=== PATIENT | female | born 1980 | race Caucasian/White ===

== ENCOUNTER 2021-11-23 02:59 | Day surgery (SDC) | payer OTHER ==
[~2021-11-23 02:59] MED LIST: ALBU90OI61 INH; BAG BALM; CALC1.25T PO; CLOT10 SUSW; CLOT1TC TOP; DOCU100 PO; FLUT220OIA IH; HYDCHL12.5 PO; LEVSOD50 PO; MAPAP; MELO7.5 PO; OMEP20ER PO; PREVIDENT; SENN187 PO; [UNRECOGNIZED DRUG - OTHER]
== END 2021-11-23 23:36 | disposition home or self-care (01) ==
LOC: WOUND 02:59
DX: L97.212 Non-pressure chronic ulcer of right calf with fat layer exposed (principal); L97.819 Non-pressure chronic ulcer of other part of right lower leg with unspecified severity; I87.2 Venous insufficiency (chronic) (peripheral); I73.9 Peripheral vascular disease, unspecified; L03.115 Cellulitis of right lower limb; I10 Essential (primary) hypertension; R60.0 Localized edema; J45.909 Unspecified asthma, uncomplicated
CPT/HCPCS: A9270; G0463

== ENCOUNTER 2021-11-30 01:56 | Day surgery (SDC) | payer OTHER | END 2021-11-30 23:21 | disposition home or self-care (01) | LOC: WOUND 01:56 | DX: L97.212 Non-pressure chronic ulcer of right calf with fat layer exposed (principal); L03.115 Cellulitis of right lower limb; I87.2 Venous insufficiency (chronic) (peripheral); I73.9 Peripheral vascular disease, unspecified; I10 Essential (primary) hypertension; R60.0 Localized edema | CPT/HCPCS: G0463 ==

== ENCOUNTER 2021-12-07 08:00 | Day surgery (SDC) | payer OTHER | END 2021-12-07 23:59 | disposition home or self-care (01) | LOC: WOUND 08:00 | DX: L97.812 Non-pressure chronic ulcer of other part of right lower leg with fat layer exposed (principal); L03.115 Cellulitis of right lower limb; I87.2 Venous insufficiency (chronic) (peripheral); I73.9 Peripheral vascular disease, unspecified; I10 Essential (primary) hypertension; R60.0 Localized edema | CPT/HCPCS: G0463 ==

== ENCOUNTER 2022-01-25 05:03 | Day surgery (SDC) | payer OTHER | END 2022-01-25 23:56 | disposition home or self-care (01) | LOC: WOUND 05:03 | DX: Z09 Encounter for follow-up examination after completed treatment for conditions other than malignant neoplasm (principal); I87.2 Venous insufficiency (chronic) (peripheral); I73.9 Peripheral vascular disease, unspecified; I10 Essential (primary) hypertension; Z87.2 Personal history of diseases of the skin and subcutaneous tissue | CPT/HCPCS: A9270; G0463 ==

== ENCOUNTER 2024-07-18 12:24 | Inpatient (IN) | payer OTHER ==
[~2024-07-18] VITALS: Ht 157.5 cm; Wt 120.0 kg
[~2024-07-18 12:24] MED LIST changes: -CALC1.25T PO; +CALCIUM CARBON500 M1 PO
[2024-07-18] MEDS ORDERED: FAMO20 PO (12:51)
[2024-07-18] MEDS ORDERED: Hair, Skin & N1 EACH PO (12:52)
[2024-07-18] MEDS ORDERED: FURO40 PO (12:52)
[2024-07-18] MEDS ORDERED: Loratadine10 MG PO (12:53)
[2024-07-18] MEDS ORDERED: Ipratropium/Albuterol SulF 2.5-0.5MG/3 ML Amp INH ONE (13:20)
[2024-07-18 13:37] LABS: CORONAVIRUS COVID-19 AG Negative (NEGATIVE); INFLUENZA A AG Negative (NEGATIVE); INFLUENZA B AG Negative (NEGATIVE)
[2024-07-18 14:52] LABS: BASOPHILS ABSOLUTE AUTO 0.01 K/mm3 (0.00-0.23); BASOPHILS PERCENT AUTO 0 % (0-2); EOSINOPHILS ABSOLUTE AUTO 0.01 K/mm3 (0.00-0.68); EOSINOPHILS PERCENT AUTO 0 % (0-6); Hematocrit 39.4 % (33.0-51.0); Hemoglobin 13.3 g/dL (11.5-16.0); IMMATURE GRAN ABSOLUTE AUTO 0.02 K/mm3 (0.00-0.10); IMMATURE GRAN PERCENT AUTO 0 % (0-1); LYMPHOCYTES ABSOLUTE AUTO 1.42 K/mm3 (0.84-5.20); LYMPHOCYTES PERCENT AUTO 21 % (21-46); MONOCYTES ABSOLUTE AUTO 0.58 K/mm3 (0.16-1.47); MONOCYTES PERCENT AUTO 9 % (4-13); Mean Corpuscular HGB 32.9 pg (26.0-34.0); Mean Corpuscular HGB Conc 33.8 g/dL (31.5-36.5); Mean Corpuscular Volume 98 fL (80-100); Mean Platelet Volume 9.4 fL (9.1-12.4); NEUTROPHILS ABSOLUTE AUTO 4.79 K/mm3 (1.96-9.15); NEUTROPHILS PERCENT AUTO 70 % (41-73); Platelet Count 251 K/mm3 (150-400); RDW Standard Deviation 50.2 fL (35.1-46.3); Red Blood Cell Count 4.04 M/mm3 (3.80-5.20); White Blood Cell Count 6.83 K/mm3 (4.00-11.30)
[2024-07-18] MEDS ORDERED: Azithromycin 250 MG Tab PO ONE (15:05)
[2024-07-18] MEDS ORDERED: CefTRIAXone Sodium 1,000 MG in NS 100 ML IV ONE (15:05)
[2024-07-18 15:15] LABS: Albumin, Blood 3.2 g/dL (3.4-5.0); Albumin/Globulin Ratio 0.6 (0.8-1.8); Bilirubin, Total 0.6 mg/dL (0.1-1.0); Calcium, Blood 9.7 mg/dL (8.5-10.1); Creatinine, Blood 0.92 mg/dL (0.40-1.00); Globulin, Blood 5.4 g/dL (2.2-4.0); Magnesium, Blood 2.5 mg/dL (1.6-2.4); Potassium, Blood 4.5 mmol/L (3.5-5.5); Total Protein, Blood 8.6 g/dL (6.4-8.2)
[2024-07-18] MEDS ORDERED: Ipratropium/Albuterol SulF 2.5-0.5MG/3 ML Amp INH SCH (17:05)
[2024-07-18] MEDS ORDERED: FLU VACC TS2024-25(6MOS UP)/PF 45 MCG/0.5 ML SYRINGE IM SCH (17:05)
[2024-07-18] MEDS ORDERED: Acetaminophen 325 MG TABLET PO PRN (17:05)
[2024-07-18] MEDS ORDERED: Albuterol 2.5 MG/3 ML VIAL INH PRN (18:35)
[2024-07-18] MEDS ORDERED: DIPH25 PO (18:58)
[2024-07-18] MEDS ORDERED: IBUP800 PO (18:59)
[2024-07-18] MEDS ORDERED: ONDA4 PO (19:01)
[2024-07-18] MEDS ORDERED: MONT10T PO (19:01)
[2024-07-18] MEDS ORDERED: ACET325 PO (19:02)
[2024-07-18] MEDS ORDERED: OXYB5 PO (19:02)
[2024-07-18] MEDS ORDERED: TERBINAFINE15 GM TOP (19:03)
[2024-07-18] MEDS ORDERED: BISA5EC PO (19:04)
[2024-07-18] MEDS ORDERED: BISA10S PR (19:05)
[2024-07-18 19:38] VITALS: BP 158/85
[2024-07-18] MEDS ORDERED: Lactobacil 2-S.Thermo-Bifido 1 1 Cap PO SCH (21:00)
[2024-07-18] MEDS ORDERED: Famotidine 20 MG Tab PO SCH (21:00)
[2024-07-18] MEDS ORDERED: GuaiFENesin 600 MG TabCR PO SCH (21:00)
--- NOTE | 2024-07-19 03:31 | NUR ---
SHIFT SUMMARY PT ARRIVED TO THE MEDICAL FLOOR AT THE END OF THE PREVIOUS SHIFT. AT THE BEGINNING OF THIS SHIFT, CHARGE NURSE DOROTHEA COMPLETED THE ADMISSION ASSESSMENT, SKIN CHECK WITH THIS GLOVE SEWER. @HS, PT'S PARENTS BY THE BEDSIDE. @2200 CAREGIVER FROM THE [facility] STAYING BY THE BEDSIDE T/O THE NIGHT. PT IS A&O X2, ABLE TO MAKE HER NEEDS KNOWN AND COOPERATIVE WITH CARE. PICTURE IN CHART OF RIGHT LE CELLULITIS. LUNGS CRACKLED PER RN'S ASSESSMENT. O2 @4L VIA NASAL CANNULA, SAT'S>97%. PT DENIES PAIN AND DISCOMFORT. BED AT THE LOWEST POSITION, CALL LIGHT WITHIN REACH.
[2024-07-19 05:01] VITALS: BP 136/77
[2024-07-19 05:57] LABS: BASOPHILS ABSOLUTE AUTO 0.01 K/mm3 (0.00-0.23); BASOPHILS PERCENT AUTO 0 % (0-2); EOSINOPHILS PERCENT AUTO 2 % (0-6); IMMATURE GRAN ABSOLUTE AUTO 0.03 K/mm3 (0.00-0.10); IMMATURE GRAN PERCENT AUTO 1 % (0-1); LYMPHOCYTES ABSOLUTE AUTO 1.06 K/mm3 (0.84-5.20); LYMPHOCYTES PERCENT AUTO 17 % (21-46); MONOCYTES ABSOLUTE AUTO 0.43 K/mm3 (0.16-1.47); MONOCYTES PERCENT AUTO 7 % (4-13); Mean Corpuscular HGB 32.8 pg (26.0-34.0); Mean Corpuscular HGB Conc 33.3 g/dL (31.5-36.5); Mean Corpuscular Volume 98 fL (80-100); Mean Platelet Volume 9.3 fL (9.1-12.4); NEUTROPHILS ABSOLUTE AUTO 4.46 K/mm3 (1.96-9.15); NEUTROPHILS PERCENT AUTO 73 % (41-73); Platelet Count 217 K/mm3 (150-400); RDW Coefficient Variation 13.9 % (11.7-14.2); RDW Standard Deviation 50.2 fL (35.1-46.3); Red Blood Cell Count 3.66 M/mm3 (3.80-5.20); White Blood Cell Count 6.09 K/mm3 (4.00-11.30)
[2024-07-19] MEDS ORDERED: Levothyroxine Sodium 0.05 MG Tab PO SCH (06:00)
[2024-07-19 06:32] LABS: Albumin, Blood 2.8 g/dL (3.4-5.0); Albumin/Globulin Ratio 0.6 (0.8-1.8); Bilirubin, Total 0.3 mg/dL (0.1-1.0); Calcium, Blood 8.9 mg/dL (8.5-10.1); Creatinine, Blood 0.7 mg/dL (0.40-1.00); Globulin, Blood 4.5 g/dL (2.2-4.0); Magnesium, Blood 1.9 mg/dL (1.6-2.4); Potassium, Blood 3.2 mmol/L (3.5-5.5); Total Protein, Blood 7.3 g/dL (6.4-8.2)
[2024-07-19 07:46] VITALS: BP 126/81
[2024-07-19] MEDS ORDERED: Multivitamins/Minerals TAB PO SCH (09:00)
[2024-07-19] MEDS ORDERED: Docusate Sodium 100 MG Cap PO SCH (09:00)
[2024-07-19] MEDS ORDERED: HydroCHLOROthiazide 25 mg Tab PO SCH (09:00)
[2024-07-19] MEDS ORDERED: Loratadine 10 MG Tab PO SCH (09:00)
[2024-07-19] MEDS ORDERED: Furosemide 40 MG Tab PO SCH (09:00)
[2024-07-19] MEDS ORDERED: Furosemide 10 MG/ML 4ML Vial IV SCH (09:00)
[2024-07-19] MEDS ORDERED: Calcium Carbonate 1,250 MG TABLET PO SCH (09:00)
[2024-07-19] MEDS ORDERED: Enoxaparin 40 MG/0.4 ML SYR SC SCH (09:00)
[2024-07-19] MEDS ORDERED: Potassium Chloride 20 MEQ TabCR PO ONE (11:00)
--- NOTE | 2024-07-19 11:24 | NUR ---
TELE AND CONTINUOUS PULSE OX INITIATED PER ORDERS. SINUS RHYTHM AT 89 BPM AND SATING 98% ON 2 L/MIN VIA NC AT REST AT TIME OF PLACEMENT.
[2024-07-19] MEDS ORDERED: NS 250 ML IV PRN (11:30)
[2024-07-19] MEDS ORDERED: CefTRIAXone Sodium 1,000 MG in NS 100 ML IV SCH (12:00)
[2024-07-19] MEDS ORDERED: Azithromycin 500 MG in NS 250 ML IV SCH (12:00)
[2024-07-19 15:31] VITALS: BP 126/93
[2024-07-19 17:28] LABS: Base Excess Venous 19.2 mmol/L; Bicarbonate Venous 40.1 mmol/L (24.0-30.0); PCO2 Venous 63.2 mmHg (38-42); pH Blood Venous 7.44 (7.34-7.37)
--- NOTE | 2024-07-19 17:33 | NUR ---
SHIFT SUMMARY A/O TO SELF AND CAREGIVERS, PT COOPERATIVE WITH CARE, CAN BE TEARFUL AT TIMES. EASILY CONSOLED AND DISTRACTIONS EFFECTIVE. PT DENIES PAIN. AMBULATES WITH SBA TO RR. SHOWERED TODAY BY HOME CG. GOOD APPETITE. IV IN RIGHT FA INFILTRATED, IV REMOVED AND POWERGLIDE PLACED BY CHARGE NURSE IN LEFT UPPER ARM. VSS. PT NOW ON 1 L/MIN VIA NC SATING >92%, ON 4 L/MIN VIA NC AT START OF SHIFT. ATTEMPTED TO TAKE PT OFF SUPPLEMENTAL O2, WHEN IV INFILTRATED PT BECAME STRESSED AND O2 SATURATION LEVELS DROPPED BELOWS 88%. PT REMAINS ON 1 L/MIN VIA NC AT THIS TIME. PT RESTING IN HOSPITAL BED WITH BED IN LOWEST POSITION, CALL LIGHT WITHIN REACH, HOME CG AT BEDSIDE.
[2024-07-19 20:29] VITALS: BP 129/70
[2024-07-20 05:03] VITALS: BP 150/86
[2024-07-20 06:24] LABS: BASOPHILS ABSOLUTE AUTO 0.01 K/mm3 (0.00-0.23); BASOPHILS PERCENT AUTO 0 % (0-2); EOSINOPHILS ABSOLUTE AUTO 0.15 K/mm3 (0.00-0.68); EOSINOPHILS PERCENT AUTO 2 % (0-6); Hematocrit 38.9 % (33.0-51.0); Hemoglobin 12.9 g/dL (11.5-16.0); IMMATURE GRAN ABSOLUTE AUTO 0.01 K/mm3 (0.00-0.10); IMMATURE GRAN PERCENT AUTO 0 % (0-1); LYMPHOCYTES ABSOLUTE AUTO 1.65 K/mm3 (0.84-5.20); LYMPHOCYTES PERCENT AUTO 26 % (21-46); MONOCYTES ABSOLUTE AUTO 0.54 K/mm3 (0.16-1.47); MONOCYTES PERCENT AUTO 8 % (4-13); Mean Corpuscular HGB 32.4 pg (26.0-34.0); Mean Corpuscular HGB Conc 33.2 g/dL (31.5-36.5); Mean Corpuscular Volume 98 fL (80-100); Mean Platelet Volume 9.5 fL (9.1-12.4); NEUTROPHILS ABSOLUTE AUTO 4.04 K/mm3 (1.96-9.15); NEUTROPHILS PERCENT AUTO 63 % (41-73); Platelet Count 235 K/mm3 (150-400); RDW Standard Deviation 50.2 fL (35.1-46.3); Red Blood Cell Count 3.98 M/mm3 (3.80-5.20)
--- NOTE | 2024-07-20 06:48 | NUR ---
Shift Summary Several times t/o the night pt would be asleep and desat down to high 70s. Upon waking she would quickly rebound to 92%+. I was able to add a pillow to her bed to prevent her from kinking her neck to the R side which seemed to help and stop the desaturations. Pt on 1L NC, SBA to BR. Caregiver in room t/o the night. On tele running SR. She is AO to self and her caregiver. She is very pleasant with a child like ora d/t developmental delay.
[2024-07-20 06:52] LABS: Albumin/Globulin Ratio 0.6 (0.8-1.8); Bilirubin, Total 0.5 mg/dL (0.1-1.0); Bun/Creatinine Ratio 21.2 (12.0-20.0); Calcium, Blood 8.8 mg/dL (8.5-10.1); Creatinine, Blood 0.71 mg/dL (0.40-1.00); Globulin, Blood 4.8 g/dL (2.2-4.0); Potassium, Blood 3.3 mmol/L (3.5-5.5); Total Protein, Blood 7.8 g/dL (6.4-8.2)
[2024-07-20 07:39] VITALS: BP 149/83
[2024-07-20] MEDS ORDERED: Potassium Chloride 20 MEQ TabCR PO ONE (09:00)
[2024-07-20] MEDS ORDERED: Spironolactone 25 MG Tab PO SCH (09:00)
--- NOTE | 2024-07-20 09:00 | NUR ---
pt sitting up in chair, caregivers in room, she is a/ox4, childlike, cooperative with care but gets axious very easily, lungs are course crackles t/o, currently on 2 liters o2 via n/c, resp even and unlabored, no cough noted, hrr, tele in place running sr per monitor, see strip, 4+ edema noted to b/l le, cap refill <3 sec, vs stable, afebrile, power glide to antonio site is clear and patent, btx 4, abd flat soft nontender, voids via bathroom, skin c/w/d, aubrey nino, call light in reach.
[2024-07-20] MEDS ORDERED: MIRALAX17 GM PO (14:21)
[2024-07-20] MEDS ORDERED: Polyethylene Glycol 3350 17 gm PO SCH (14:30)
[2024-07-20 15:43] VITALS: BP 184/98
--- NOTE | 2024-07-20 19:13 | NUR ---
pt had a bit of anxiety this am, even a bit tearful, had lots of caregivers and family in with her today, she had a shower, will be having a stress test tomorrow am, call light in reach.
[2024-07-20 20:20] VITALS: BP 122/84
[2024-07-20] MEDS ORDERED: Docusate Sodium 100 MG Cap PO SCH (21:00)
[2024-07-21] MEDS ORDERED: Melatonin 5 MG Tablet PO PRN (02:30)
[2024-07-21 03:00] VITALS: BP 138/80
[2024-07-21 07:01] LABS: Bun/Creatinine Ratio 27.2 (12.0-20.0); Calcium, Blood 9.5 mg/dL (8.5-10.1); Creatinine, Blood 0.59 mg/dL (0.40-1.00); Potassium, Blood 3.5 mmol/L (3.5-5.5)
--- NOTE | 2024-07-21 07:27 | NUR ---
BIG DATA PLATFORM ARCHITECT SUMMARY NO SIGNIFICANT CHANGES OVERNIGHT. PT HAD OVERNIGHT SLEEP STUDY. NPO FOR STRESS TEST TODAY
[2024-07-21] MEDS ORDERED: Potassium Chloride 20 MEQ TabCR PO ONE (07:50)
--- NOTE | 2024-07-21 09:00 | NUR ---
pt sitting up in bed eating breakfast after being injected for stress test, she is in good spirits this am, coopertive with care, does't follow commands very well, wont take deep breaths and making mouth noise, she is on fluid rest of one liter/day, has 3-4+ edema to b/l le, is soft, nonpitting, power glide to antonio site is clear and patent, btx4, had large bm last night, voids without diff, skin c/w/d, maew, needs assist to stand, ambulating with a walker, call light in reach.
[2024-07-21] MEDS ORDERED: Ipratropium/Albuterol SulF 2.5-0.5MG/3 ML Amp INH SCH (13:30)
[2024-07-21 15:31] VITALS: BP 117/64
--- NOTE | 2024-07-21 18:14 | NUR ---
pt had first part of stress test done this am, will keep npo after mid, for second half tomorrow, caregivers and family have been at bedside throughout the day, no acute changes this shift call light in reach.
[2024-07-21 19:49] VITALS: BP 139/85
[2024-07-22 04:15] VITALS: BP 109/67
[2024-07-22 06:53] LABS: BASOPHILS ABSOLUTE AUTO 0.01 K/mm3 (0.00-0.23); BASOPHILS PERCENT AUTO 0 % (0-2); EOSINOPHILS ABSOLUTE AUTO 0.17 K/mm3 (0.00-0.68); EOSINOPHILS PERCENT AUTO 2 % (0-6); Hematocrit 37.8 % (33.0-51.0); Hemoglobin 12.8 g/dL (11.5-16.0); IMMATURE GRAN ABSOLUTE AUTO 0.01 K/mm3 (0.00-0.10); IMMATURE GRAN PERCENT AUTO 0 % (0-1); LYMPHOCYTES ABSOLUTE AUTO 1.16 K/mm3 (0.84-5.20); LYMPHOCYTES PERCENT AUTO 16 % (21-46); MONOCYTES ABSOLUTE AUTO 0.49 K/mm3 (0.16-1.47); MONOCYTES PERCENT AUTO 7 % (4-13); Mean Corpuscular HGB 33.3 pg (26.0-34.0); Mean Corpuscular HGB Conc 33.9 g/dL (31.5-36.5); Mean Corpuscular Volume 98 fL (80-100); Mean Platelet Volume 9.3 fL (9.1-12.4); NEUTROPHILS ABSOLUTE AUTO 5.65 K/mm3 (1.96-9.15); NEUTROPHILS PERCENT AUTO 76 % (41-73); Platelet Count 208 K/mm3 (150-400); RDW Coefficient Variation 14.4 % (11.7-14.2); RDW Standard Deviation 51.4 fL (35.1-46.3); Red Blood Cell Count 3.84 M/mm3 (3.80-5.20); White Blood Cell Count 7.49 K/mm3 (4.00-11.30)
[2024-07-22 07:07] LABS: Bun/Creatinine Ratio 25.7 (12.0-20.0); Calcium, Blood 9.4 mg/dL (8.5-10.1); Creatinine, Blood 0.62 mg/dL (0.40-1.00); Potassium, Blood 3.8 mmol/L (3.5-5.5)
[2024-07-22 07:25] VITALS: BP 128/92
[2024-07-22] MEDS ORDERED: Furosemide 20 MG Tab PO SCH (09:00)
[2024-07-22] MEDS ORDERED: Regadenoson 0.4 MG/5 ML SYRINGE ONE (13:22)
[2024-07-22] MEDS ORDERED: Caffeine Citrated 60 MG/3 ML Vial ONE (13:22)
[2024-07-22 15:53] VITALS: BP 138/84
[2024-07-22] MEDS ORDERED: ALDACTONE25 MG PO (17:14)
[2024-07-22] MEDS ORDERED: AMOCLA875 PO (17:15)
[2024-07-22] MEDS ORDERED: VISBIOME 112.51 EACH PO (17:15)
--- NOTE | 2024-07-22 18:52 | NUR ---
DISCHARGE NOTE PATIENT AND FAMILY/CAREGIVERS EDUCATED ON DISCHARGE PACKET/INSTRUCTIONS/NEW PRESCRIPTIONS. PRINTED OUT COPY OF [facility] 02 EVALUATION/INSTRUCTIONS. POWERGLIDE TO LEFT UPPER ARM REMOVED. NO NEW QUESTIONS OR CONCERNS. ESCORTED OUT VIA WHEELCHAIR WITH PORTABLE 02 THAT WAS DROPPED OFF BY RAMON.
== END 2024-07-22 18:38 | disposition home or self-care (01) | DRG 193 ==
LOC: ER 12:24 → MEDS 12:25
PROVIDERS: Internal Medicine; Student in an Organized Health Care Education/Training Program; ADMIT Student in an Organized Health Care Education/Training Program
DX: J18.9 Pneumonia, unspecified organism (principal); I21.A1 Myocardial infarction type 2; J96.01 Acute respiratory failure with hypoxia; I50.31 Acute diastolic (congestive) heart failure; Z68.42 Body mass index [BMI] 45.0-49.9, adult; I11.0 Hypertensive heart disease with heart failure; J45.909 Unspecified asthma, uncomplicated; E03.9 Hypothyroidism, unspecified; K21.9 Gastro-esophageal reflux disease without esophagitis; R73.03 Prediabetes; E87.6 Hypokalemia; F81.9 Developmental disorder of scholastic skills, unspecified; G47.33 Obstructive sleep apnea (adult) (pediatric); E66.9 Obesity, unspecified; Z79.890 Hormone replacement therapy; Z79.899 Other long term (current) drug therapy; Z79.1 Long term (current) use of non-steroidal anti-inflammatories (NSAID); Z87.74 Personal history of (corrected) congenital malformations of heart and circulatory system
CPT/HCPCS: 36415; 71045; 78452; 80048; 80053; 82803; 83735; 83880; 84145; 84484; 85025; 87428-QW; 92610; 93005; 93010; 93017; 93306; 94640; 94664; 94760; 94761; 94762; 96365; 96366; 96367; 96375; 99285-25; A9270; A9500; C1751; G0378; J0456; J0696; J0706; J1650; J1940; J2785; J7050

== ENCOUNTER 2024-11-08 07:15 | Inpatient (IN) | payer OTHER ==
[~2024-11-08] VITALS: Ht 157.5 cm; Wt 123.0 kg
[~2024-11-08 07:15] MED LIST changes: +ACET325 PO; +ALDACTONE25 MG PO; +AMOCLA875 PO; +BISA10S PR; +BISA5EC PO; +DIPH25 PO; +FAMO20 PO; +FURO40 PO; +Hair, Skin & N1 EACH PO; +IBUP800 PO; +Loratadine10 MG PO; +MIRALAX17 GM PO; +MONT10T PO; +ONDA4 PO; +OXYB5 PO; +TERBINAFINE15 GM TOP; +VISBIOME 112.51 EACH PO
[2024-11-08] MEDS ORDERED: Ondansetron HCl 2 MG / ML 2ML Vial IV ONE (07:50)
[2024-11-08 08:01] LABS: BASOPHILS ABSOLUTE AUTO 0.01 K/mm3 (0.00-0.23); BASOPHILS PERCENT AUTO 0 % (0-2); EOSINOPHILS ABSOLUTE AUTO 0.06 K/mm3 (0.00-0.68); EOSINOPHILS PERCENT AUTO 1 % (0-6); Hematocrit 39.1 % (33.0-51.0); Hemoglobin 12.8 g/dL (11.5-16.0); IMMATURE GRAN ABSOLUTE AUTO 0.04 K/mm3 (0.00-0.10); IMMATURE GRAN PERCENT AUTO 0 % (0-1); LYMPHOCYTES PERCENT AUTO 10 % (21-46); MONOCYTES ABSOLUTE AUTO 0.37 K/mm3 (0.16-1.47); MONOCYTES PERCENT AUTO 4 % (4-13); Mean Corpuscular HGB 33.4 pg (26.0-34.0); Mean Corpuscular HGB Conc 32.7 g/dL (31.5-36.5); Mean Corpuscular Volume 102 fL (80-100); Mean Platelet Volume 9.9 fL (9.1-12.4); NEUTROPHILS ABSOLUTE AUTO 8.84 K/mm3 (1.96-9.15); NEUTROPHILS PERCENT AUTO 86 % (41-73); Platelet Count 212 K/mm3 (150-400); RDW Coefficient Variation 14.1 % (11.7-14.2); Red Blood Cell Count 3.83 M/mm3 (3.80-5.20); White Blood Cell Count 10.32 K/mm3 (4.00-11.30)
[2024-11-08 08:23] LABS: Albumin, Blood 3.3 g/dL (3.4-5.0); Albumin/Globulin Ratio 0.6 (0.8-1.8); Bilirubin, Total 0.5 mg/dL (0.1-1.0); Bun/Creatinine Ratio 32.5 (12.0-20.0); Calcium, Blood 8.9 mg/dL (8.5-10.1); Creatinine, Blood 0.68 mg/dL (0.40-1.00); Globulin, Blood 5.2 g/dL (2.2-4.0); Magnesium, Blood 2.3 mg/dL (1.6-2.4); Potassium, Blood 4.2 mmol/L (3.5-5.5); Total Protein, Blood 8.5 g/dL (6.4-8.2)
[2024-11-08] MEDS ORDERED: LORA10ER PO (09:04)
[2024-11-08] MEDS ORDERED: METAMUCIL174 GM (09:06)
[2024-11-08] MEDS ORDERED: Milk Of Ma400 MG/5 M PO (09:07)
[2024-11-08] MEDS ORDERED: Mucus Relief400 MG PO (09:08)
[2024-11-08] MEDS ORDERED: ALBU90OI6 (09:10)
[2024-11-08 09:24] LABS: Influenza A, PCR NEGATIVE (NEGATIVE); Influenza B, PCR NEGATIVE (NEGATIVE); Resp Syncytial Virus, PCR NEGATIVE (NEGATIVE); SARS-Cov-2 (COVID-19) PCR, MMC NEGATIVE (NEGATIVE)
[2024-11-08] MEDS ORDERED: Midazolam HCl 1MG / ML 2ML Vial IV ONE (10:25)
[2024-11-08] MEDS ORDERED: Metoclopramide HCl 5MG / ML 2ML Vial IV ONE (11:10)
[2024-11-08 11:50] LABS: Base Excess Venous 12.6 mmol/L; Bicarbonate Venous 33.7 mmol/L (24.0-30.0); PCO2 Venous 71.8 mmHg (38-42); pH Blood Venous 7.34 (7.34-7.37)
[2024-11-08] MEDS ORDERED: Azithromycin 500 MG in NS 250 ML IV ONE (11:50)
[2024-11-08] MEDS ORDERED: CefTRIAXone Sodium 1,000 MG in NS 50 ML IV ONE (11:50)
[2024-11-08] MEDS ORDERED: Furosemide 10 MG/ML 4ML Vial IV ONE (11:55)
[2024-11-08] MEDS ORDERED: Ondansetron 4 MG TAB PO PRN (12:25)
[2024-11-08] MEDS ORDERED: Magnesium Hydroxide Conc 10 ML UDC PO PRN (12:25)
[2024-11-08] MEDS ORDERED: Ipratropium/Albuterol SulF 2.5-0.5MG/3 ML Amp INH SCH (12:30)
[2024-11-08] MEDS ORDERED: TraZODone HCl 50 MG Tab PO PRN (12:30)
[2024-11-08] MEDS ORDERED: Bisacodyl 10 MG Supp PR PRN (12:35)
[2024-11-08] MEDS ORDERED: Acetaminophen 325 MG TABLET PO PRN (12:35)
[2024-11-08] MEDS ORDERED: Mometasone/Formoterol MDI 200/5 mcg 13 GM INH SCH (12:40)
[2024-11-08] MEDS ORDERED: Ibuprofen 400 MG Tab PO PRN (12:40)
[2024-11-08] MEDS ORDERED: DiphenhydrAMINE HCL 25 MG Cap PO PRN (12:40)
[2024-11-08] MEDS ORDERED: QUEtiapine Fumarate 25 MG Tab PO PRN (13:15)
[2024-11-08] MEDS ORDERED: PredniSONE 20 MG Tab PO SCH (13:24)
[2024-11-08] MEDS ORDERED: HydrALAZINE HCl 20 MG / ML 1ML Vial IV PRN (13:25)
[2024-11-08 13:39] VITALS: BP 158/81
[2024-11-08 16:18] VITALS: BP 120/87
--- NOTE | 2024-11-08 17:41 | NUR ---
END OF SHIFT SUMMARY: PT A/0 X4 SBA TO BATHROOM. PT ON 2L O2, SATS AT 98. LUNG SOUNDS COURSE. NSR HR 80s. BLE EDEMA +1 NOTED, PT WAS WEARING COMPRESSION STOCKINGS, NOW TAKING A BREAK. TOLERATING FOOD WELL, 1500 CC FLUID RESITRICTION. PT NONVERBAL BUT EXPRESSES NEEDS WITH FACIAL EXPRESSIONS AND BODY LANGUAGE. PT LYING IN BED, CALL LIGHT IN REACH. CAREGIVER FROM [facility] SITTING WITH PT AT BEDSIDE.
--- NOTE | 2024-11-08 17:58 | NUR ---
END OF SHIFT SUMMARY: PT A/0. SBA TO BATHROOM. PT ON 2L O2, SATS AT 98. LUNG SOUNDS COURSE. NSR HR 80s. BLE EDEMA +1 NOTED, PT WAS WEARING COMPRESSION STOCKINGS, NOW TAKING A BREAK. TOLERATING FOOD WELL, 1800 CC FLUID RESITRICTION. PT NONVERBAL BUT EXPRESSES NEEDS WITH FACIAL EXPRESSIONS AND BODY LANGUAGE. PT LYING IN BED, CALL LIGHT IN REACH. CAREGIVER FROM [facility] SITTING WITH PT AT BEDSIDE.
[2024-11-08] MEDS ORDERED: Furosemide 10 MG/ML 4ML Vial IV SCH (18:00)
[2024-11-08 18:11] VITALS: BP 126/67
[2024-11-08 19:19] VITALS: BP 145/73
[2024-11-08 19:22] VITALS: BP 145/73
--- NOTE | 2024-11-08 19:30 | NUR ---
CAREGIVER GOT PATIENT UP TO BATHROOM, CAREGIVER STATES SHE WAS ALLOWING THE PATIENT TO WIPE AND TURNED TO GET HER SOME MORE TOILET PAPER, WHEN SHE TURNED AROUND PATIENT WAS FALLING AND THE CAREGIVER LOWERED THE PATIENT TO THE FLOOR. GRATED CHEESE MAKER STATES THE PATIENT DID NOT HIT ANYWHERE OR SUSTAIN ANY INJURIES. CAREGIVER DENIES INJURIES TO SELF. GAITBELT WAS APPLIED AND 4 PERSON ASSIST TO GET OFF FLOOR, PATIENT WALKED WITH GAITBELT AND MINIMAL ASSISTANCE TO BED. VSS. WHEN ASKED PATIENT DENIES PAIN AT THIS TIME. DR ENAMORADO AND NURSING FIRE LOOKOUT NOTIFIED. NOTIFIED PATIENT MOTHER JOSE MANUEL. BED ALARM ON, PLANS TO USE BSC AND 2 PERSON ASSIST.
[2024-11-08 20:14] VITALS: BP 118/50
[2024-11-08] MEDS ORDERED: Lactobacil 2-S.Thermo-Bifido 1 1 Cap PO SCH (21:00)
[2024-11-08] MEDS ORDERED: Montelukast Sodium 10 MG Tab PO SCH (21:00)
[2024-11-08] MEDS ORDERED: oxyBUTYnin chloride 5 MG TAB PO SCH (21:00)
[2024-11-08] MEDS ORDERED: Docusate Sodium 100 MG Cap PO SCH (21:00)
[2024-11-08] MEDS ORDERED: Famotidine 20 MG Tab PO SCH (21:00)
[2024-11-09] VITALS (7 sets, daily range): BP systolic 124–153; BP diastolic 48–111
--- NOTE | 2024-11-09 05:59 | NUR ---
SHIFT SUMMARY PT REMAINS A&OX 2-3. HAS CAREGIVER AT BEDSIDE. VSS ON 2-3L NC >92% WHICH IS BASELINE FOR PT. PT C/O PAIN IN THE MIDDLE OF THE NIGHT, WHEN ASKED PT POINTS TO STOMACH. ADVIL GIVEN TO PT WITH GOOD RELIEF. PT FELT NAUSEOUS AT ONE POINT, ZOFRAN GIVEN WITH GOOD RELIEF. PT UP TO BSC WITH 2A. NO FURTHER QUESTIONS OR CONCERNS AT THIS TIME. WILL CONTINUE WITH PLAN OF CARE.
[2024-11-09] MEDS ORDERED: Levothyroxine Sodium 0.05 MG Tab PO SCH (06:00)
[2024-11-09 06:11] LABS: Hematocrit 37.7 % (33.0-51.0); Hemoglobin 12.2 g/dL (11.5-16.0); Mean Corpuscular HGB Conc 32.4 g/dL (31.5-36.5); Mean Corpuscular Volume 105 fL (80-100); Mean Platelet Volume 9.9 fL (9.1-12.4); Platelet Count 199 K/mm3 (150-400); RDW Coefficient Variation 13.7 % (11.7-14.2); RDW Standard Deviation 52.8 fL (35.1-46.3); Red Blood Cell Count 3.59 M/mm3 (3.80-5.20); White Blood Cell Count 9.55 K/mm3 (4.00-11.30)
[2024-11-09 06:51] LABS: Albumin, Blood 3.1 g/dL (3.4-5.0); Albumin/Globulin Ratio 0.6 (0.8-1.8); Bilirubin, Total 0.3 mg/dL (0.1-1.0); Bun/Creatinine Ratio 32.9 (12.0-20.0); Creatinine, Blood 0.7 mg/dL (0.40-1.00); Globulin, Blood 4.8 g/dL (2.2-4.0); Magnesium, Blood 2.4 mg/dL (1.6-2.4); Potassium, Blood 4.2 mmol/L (3.5-5.5); Total Protein, Blood 7.9 g/dL (6.4-8.2)
[2024-11-09] MEDS ORDERED: Loratadine 10 MG Tab PO SCH (09:00)
[2024-11-09] MEDS ORDERED: CefTRIAXone Sodium 2,000 MG in NS 100 ML IV SCH (09:00)
[2024-11-09] MEDS ORDERED: Spironolactone 25 MG Tab PO SCH (09:00)
[2024-11-09] MEDS ORDERED: Azithromycin 250 MG Tab PO SCH (09:00)
[2024-11-09] MEDS ORDERED: Enoxaparin 40 MG/0.4 ML SYR SC SCH (09:00)
[2024-11-09 09:48] LABS: Base Excess Venous 20.9 mmol/L; Bicarbonate Venous 39.6 mmol/L (24.0-30.0); PCO2 Venous 85.6 mmHg (38-42); pH Blood Venous 7.34 (7.34-7.37)
[2024-11-09] MEDS ORDERED: Azithromycin 500 MG in NS 250 ML IV SCH (15:00)
[2024-11-09 15:47] LABS: Bicarbonate Venous 43.7 mmol/L (24.0-30.0); PCO2 Venous 49.2 mmHg (38-42); pH Blood Venous 7.56 (7.34-7.37)
--- NOTE | 2024-11-09 17:34 | NUR ---
SHIFT SUMMARY PT MORE SOLMULENT T/O DAY WITH JERKING MOTIONS NOTED, DR GAMEZ NOTIFIED, NEW ORDER FOR VBG. CO2 ELEVATED, ATTEMPTED BIPAP AT 10/5, THEN 12/6 TITRATED 1-6L NEEDED TO KEEP SPO2 >90%. PT MORE AWAKE THIS AFTERNOON, NO JERKING MOTION NOTED; ON 3L O2 VIA NC. PARENTS AT BEDSIDE T/O SHIFT, NOW [employer] CAREGIVER AT BEDSIDE. OTHER VSS. CALL LIGHT WITHIN REACH
[2024-11-10 03:05] VITALS: BP 138/71
--- NOTE | 2024-11-10 04:48 | NUR ---
SHIFT SUMMARY NO ACUTE CHANGES OVERNIGHT. PT DOING A LOT BETTER THAN PREVIOUS NIGHT. USING 3L NC WHICH IS BASELINE AND REMAINS >92%. CONTINUES TO HAVE A MOIST COUGH. USING BSC WITH 2A, GOOD OUTPUT. NO FURTHER QUESTIONS OR CONCERNS AT THIS TIME. WILL CONTINUE WITH PLAN OF CARE.
[2024-11-10 05:25] LABS: Base Excess Venous 23.8 mmol/L; Bicarbonate Venous 45.7 mmol/L (24.0-30.0); PCO2 Venous 47.8 mmHg (38-42)
[2024-11-10 05:29] LABS: pH Blood Venous 7.58 (7.34-7.37)
[2024-11-10 05:39] LABS: Calcium, Blood 8.8 mg/dL (8.5-10.1); Creatinine, Blood 0.71 mg/dL (0.40-1.00); Potassium, Blood 3.8 mmol/L (3.5-5.5)
[2024-11-10 08:50] VITALS: BP 103/79
[2024-11-10 11:25] VITALS: BP 131/87
[2024-11-10 15:20] VITALS: BP 146/85
--- NOTE | 2024-11-10 18:04 | NUR ---
UNDERGROUND CONDUIT INSTALLER SHIFT SUMMARY PATIENT IS ALERT AND ORIENTED TO SELF, ABLE TO FOLLOW COMMANDS, BUT UNABLE TO CONSISTENTLY MAKE NEEDS KNOWN. VSS, NORMAL SINUS IN 80'S-90'S, PATIENT DENIES PRESENCE OF CHEST PAIN OR PRESSURE THROUGHOUT SHIFT, EDEMA NOTED IN BLE. PATIENT IS ON 1-3L HUMIDIFIED O2 VIA NC, SPO2 >90%, PATIENT DESATS WHILE SLEEPING AND REQUIRES MORE O2. PRESENCE OF WET CONGESTED COUGH NOTED. PATIENT DENIES PRESENCE OF NAUSEA, VOMITING, OR DIARRHEA THROUGHOUT SHIFT. FAMILY HAS BEEN WITH PATIENT THROUGHOUT SHIFT. PATIENT SITTING UP IN CHAIR, CALL LIGHT WITHIN REACH.
[2024-11-10 19:50] VITALS: BP 140/97
[2024-11-11 00:05] VITALS: BP 123/71
[2024-11-11 05:20] VITALS: BP 135/84
--- NOTE | 2024-11-11 05:43 | NUR ---
SHIFT SUMMURY: ALERT TO SELF. UNABLE TO EXPRESS NEEDS DUE TO DEVELOPMENTAL CONDITION. BP STABLE MAP>65. SINUS RHYTM IN THE 70'S. DENIES CHEST PAIN/PRESSURE. ON 2 L NC. NO FACIAL GRIMACES. PATIENT COMPENSATION PROGRAMS MANAGER AT BEDSIDE. ASSISTED TO BEDSIDE COMMODE.CALL LIGHT IS WITHIN REACH AND BED IS AT THE LOWEST POSITION.
[2024-11-11 07:32] VITALS: BP 132/64
[2024-11-11 10:08] LABS: Bicarbonate Venous 40.7 mmol/L (24.0-30.0); PCO2 Venous 62.7 mmHg (38-42); pH Blood Venous 7.46 (7.34-7.37)
[2024-11-11 10:19] LABS: BASOPHILS ABSOLUTE AUTO 0.01 K/mm3 (0.00-0.23); BASOPHILS PERCENT AUTO 0 % (0-2); EOSINOPHILS ABSOLUTE AUTO 0.04 K/mm3 (0.00-0.68); EOSINOPHILS PERCENT AUTO 0 % (0-6); Hematocrit 40.8 % (33.0-51.0); Hemoglobin 13.4 g/dL (11.5-16.0); IMMATURE GRAN ABSOLUTE AUTO 0.01 K/mm3 (0.00-0.10); IMMATURE GRAN PERCENT AUTO 0 % (0-1); LYMPHOCYTES ABSOLUTE AUTO 1.85 K/mm3 (0.84-5.20); LYMPHOCYTES PERCENT AUTO 20 % (21-46); MONOCYTES PERCENT AUTO 7 % (4-13); Mean Corpuscular HGB Conc 32.8 g/dL (31.5-36.5); Mean Corpuscular Volume 101 fL (80-100); Mean Platelet Volume 9.2 fL (9.1-12.4); NEUTROPHILS ABSOLUTE AUTO 6.89 K/mm3 (1.96-9.15); NEUTROPHILS PERCENT AUTO 73 % (41-73); Platelet Count 218 K/mm3 (150-400); RDW Coefficient Variation 13.8 % (11.7-14.2); RDW Standard Deviation 50.2 fL (35.1-46.3); Red Blood Cell Count 4.06 M/mm3 (3.80-5.20)
[2024-11-11 10:54] LABS: Albumin, Blood 3.4 g/dL (3.4-5.0); Anion Gap 8 mmol/L (3-11); Blood Urea Nitrogen 18 mg/dL (8-24); Bun/Creatinine Ratio 28.9 (12.0-20.0); CO2, Blood 41 mmol/L (21-32); Chloride, Blood 91 mmol/L (98-108); Creatinine, Blood 0.62 mg/dL (0.40-1.00); Glomerular Filtration Rate 112 (60-); Glucose, Blood 133 mg/dL (70-99); Phosphorus, Blood 2.2 mg/dL (2.5-4.9); Potassium, Blood 3.1 mmol/L (3.5-5.5); Sodium, Blood 137 mmol/L (136-145)
[2024-11-11 11:24] VITALS: BP 145/91
[2024-11-11] MEDS ORDERED: Potassium Chloride 10 Meq Tablet SA PO ONE (12:15)
[2024-11-11] MEDS ORDERED: Cefpodoxime Pr100 MG PO (14:44)
--- NOTE | 2024-11-11 15:42 | NUR ---
PATIENT DISCHARGE. PATIENT DISCHARGED BACK TO [facility] FOR THE HANDICAPPED WITH CAREGIVER. PATIENT WHEELED TO FACILITY VAN WITH PERSONAL PORTABLE OXYGEN. PATIENTS IV'S REMOVED BY PHOTOENGRAVING MACHINE OPERATOR/TENDER, CAREGIVER EDUCATED ON REMOVAL. DISCHARGE INSTRUCTIONS AND ALL PATIENTS PERSONAL BELONGINGS SENT WITH PATIENT WITH DISCHARGE.
== END 2024-11-11 15:31 | disposition home or self-care (01) | DRG 193 ==
LOC: ER 07:15 → PCU 12:24 → ERHOLD 12:24 → PCU 13:50
PROVIDERS: Family Medicine; Student in an Organized Health Care Education/Training Program; ADMIT Hospitalist
PROC: 5A0935A Assistance with Respiratory Ventilation, Less than 24 Consecutive Hours, High Flow/Velocity Cannula (ICD-10-PCS; principal; 2024-11-08)
DX: J18.9 Pneumonia, unspecified organism (principal); J96.01 Acute respiratory failure with hypoxia; J96.02 Acute respiratory failure with hypercapnia; J45.901 Unspecified asthma with (acute) exacerbation; E87.3 Alkalosis; K21.9 Gastro-esophageal reflux disease without esophagitis; G47.30 Sleep apnea, unspecified; R62.50 Unspecified lack of expected normal physiological development in childhood; E03.9 Hypothyroidism, unspecified; G47.33 Obstructive sleep apnea (adult) (pediatric); I10 Essential (primary) hypertension; Z79.51 Long term (current) use of inhaled steroids; Z79.899 Other long term (current) drug therapy; Z79.890 Hormone replacement therapy
CPT/HCPCS: 0241U; 36415; 71045; 71260; 80048; 80053; 80069; 82803; 83605; 83735; 83880; 84145; 85025; 85027; 93005; 93010; 94640; 94660; 94664; 94761; 94762; 96374-59; 96375; 99285-25; A9270; J0456; J0696; J1650; J1940; J2250; J2405; J2765; J7050; J7512; Q9967

== ENCOUNTER 2025-05-26 07:46 | Emergency (ER) | payer OTHER, MEDICARE ==
[~2025-05-26] VITALS: Ht 147.3 cm; Wt 134.7 kg
[~2025-05-26 07:46] MED LIST changes: +ALBU90OI6; +Cefpodoxime Pr100 MG PO; +LORA10ER PO; +METAMUCIL174 GM; +Milk Of Ma400 MG/5 M PO; +Mucus Relief400 MG PO
[2025-05-26 08:02] VITALS: BP 147/109
[2025-05-26 08:48] LABS: BASOPHILS ABSOLUTE AUTO 0.01 K/mm3 (0.00-0.23); BASOPHILS PERCENT AUTO 0 % (0-2); EOSINOPHILS ABSOLUTE AUTO 0.14 K/mm3 (0.00-0.68); EOSINOPHILS PERCENT AUTO 2 % (0-6); Hematocrit 40.1 % (33.0-51.0); Hemoglobin 13.0 g/dL (11.5-16.0); IMMATURE GRAN ABSOLUTE AUTO 0.02 K/mm3 (0.00-0.10); IMMATURE GRAN PERCENT AUTO 0 % (0-1); LYMPHOCYTES ABSOLUTE AUTO 0.89 K/mm3 (0.84-5.20); LYMPHOCYTES PERCENT AUTO 12 % (21-46); MONOCYTES ABSOLUTE AUTO 0.35 K/mm3 (0.16-1.47); MONOCYTES PERCENT AUTO 5 % (4-13); Mean Corpuscular HGB Conc 32.4 g/dL (31.5-36.5); Mean Corpuscular Volume 100 fL (80-100); NEUTROPHILS ABSOLUTE AUTO 6.05 K/mm3 (1.96-9.15); NEUTROPHILS PERCENT AUTO 81 % (41-73); NRBC ABSOLUTE 0.00 K/mm3 (0.00-0.02); NRBC Auto 0.0 /100 WBC (0.0-0.2); Platelet Count 190 K/mm3 (150-400); RDW Coefficient Variation 14.2 % (11.7-14.2); RDW Standard Deviation 51.8 fL (35.1-46.3)
[2025-05-26 09:45] LABS: Alanine Aminotransfer (ALT/SGP 22.0 U/L (12-78); Albumin, Blood 3.5 g/dL (3.4-5.0); Albumin/Globulin Ratio 0.7 (0.8-1.8); Anion Gap 4.0 mmol/L (3-11); Aspartate Aminotrans (AST/SGOT 23.0 U/L (12-37); Bilirubin, Total 0.4 mg/dL (0.1-1.0); Blood Urea Nitrogen 25.0 mg/dL (8-24); CO2, Blood 42.0 mmol/L (21-32); Calcium, Blood 9.1 mg/dL (8.5-10.1); Chloride, Blood 93.0 mmol/L (98-108); Creatinine, Blood 0.68 mg/dL (0.40-1.00); Globulin, Blood 5.0 g/dL (2.2-4.0); Glucose, Blood 109.0 mg/dL (70-99); Potassium, Blood 3.5 mmol/L (3.5-5.5); Sodium, Blood 135.0 mmol/L (136-145); Total Protein, Blood 8.5 g/dL (6.4-8.2)
== END 2025-05-26 10:27 | disposition home or self-care (01) ==
LOC: ER 07:46
PROVIDERS: Student in an Organized Health Care Education/Training Program
DX: Z04.3 Encounter for examination and observation following other accident (principal); I10 Essential (primary) hypertension; E03.9 Hypothyroidism, unspecified; J45.909 Unspecified asthma, uncomplicated; K21.9 Gastro-esophageal reflux disease without esophagitis; G47.30 Sleep apnea, unspecified; R62.50 Unspecified lack of expected normal physiological development in childhood; Z91.81 History of falling; Z79.890 Hormone replacement therapy; Z79.1 Long term (current) use of non-steroidal anti-inflammatories (NSAID); Z79.899 Other long term (current) drug therapy
CPT/HCPCS: 70450; 72125; 80053; 85025; 93005; 93010; 99284-25